=== PATIENT | female | born 1970 | race Caucasian/White ===

== ENCOUNTER 2018-07-14 10:59 | Outpatient (CLI) | payer BC | END 2018-07-14 11:00 | disposition home or self-care (01) | LOC: BICMAMMO 10:59 | PROVIDERS: ATTEND Obstetrics & Gynecology | DX: Z12.31 Encounter for screening mammogram for malignant neoplasm of breast (principal); R92.1 Mammographic calcification found on diagnostic imaging of breast; Z80.3 Family history of malignant neoplasm of breast | CPT/HCPCS: 77063; 77067 ==

== ENCOUNTER 2019-07-23 16:00 | Outpatient (CLI) | payer BC ==
--- NOTE | 2019-07-23 16:42 | MMO ---
Bilateral MAMMO Bilat Screen [facility]. CLINICAL HISTORY: Patient is 48 years old and is seen for screening. The patient has the following family history of breast cancer: paternal aunt. The patient has no personal history of cancer. VIEWS: The views performed were: bilateral craniocaudal with tomosynthesis and bilateral mediolateral oblique with tomosynthesis. FILMS COMPARED: The present examination has been compared to prior imaging studies performed at [facility] on 02/02/2015, 02/15/2016, 02/20/2017 and 07/14/2018. This study has been interpreted with the assistance of computer-aided detection. MAMMOGRAM FINDINGS: There are scattered fibroglandular densities. There are no suspicious masses, suspicious calcifications, or new areas of architectural distortion. IMPRESSION: THERE IS NO MAMMOGRAPHIC EVIDENCE OF MALIGNANCY. A ROUTINE FOLLOW-UP MAMMOGRAM IN 1 YEAR IS RECOMMENDED. THE RESULTS OF THIS EXAM WERE SENT TO THE PATIENT. ACR BI-RADS Category 1 - Negative MAMMOGRAPHY NOTE: 1. A negative mammogram report should not delay a biopsy if a dominant of clinically suspicious mass is present. 2. Approximately 10% to 15% of breast cancers are not detected by mammography. 3. Adenosis and dense breasts may obscure an underlying neoplasm. Reported by: CHITO LEWIS MD Electonically Signed: [id number]
== END 2019-07-23 16:01 | disposition home or self-care (01) ==
LOC: BICMAMMO 16:00
PROVIDERS: ATTEND Obstetrics & Gynecology
DX: Z12.31 Encounter for screening mammogram for malignant neoplasm of breast (principal); Z80.3 Family history of malignant neoplasm of breast
CPT/HCPCS: 77063; 77067

== ENCOUNTER 2020-07-27 07:55 | Outpatient (CLI) | payer BC ==
--- NOTE | 2020-07-27 09:00 | MMO ---
Bilateral MAMMO Bilat Screen [facility]. CLINICAL HISTORY: Patient is 49 years old and is seen for screening. The patient has the following family history of breast cancer: paternal aunt. The patient has no personal history of cancer. VIEWS: The views performed were: bilateral craniocaudal with tomosynthesis and bilateral mediolateral oblique with tomosynthesis. FILMS COMPARED: The present examination has been compared to prior imaging studies performed at [facility] on 02/15/2016, 02/20/2017, 07/14/2018 and 07/23/2019. This study has been interpreted with the assistance of computer-aided detection. MAMMOGRAM FINDINGS: There are scattered fibroglandular densities. There are no suspicious masses, calcifications or areas of architectural distortion. There are benign appearing calcifications in both breasts. There are no suspicious masses, suspicious calcifications, or new areas of architectural distortion. IMPRESSION: THERE IS NO MAMMOGRAPHIC EVIDENCE OF MALIGNANCY. A ROUTINE FOLLOW-UP MAMMOGRAM IN 1 YEAR IS RECOMMENDED. THE RESULTS OF THIS EXAM WERE SENT TO THE PATIENT. ACR BI-RADS Category 2 - Benign finding MAMMOGRAPHY NOTE: 1. A negative mammogram report should not delay a biopsy if a dominant of clinically suspicious mass is present. 2. Approximately 10% to 15% of breast cancers are not detected by mammography. 3. Adenosis and dense breasts may obscure an underlying neoplasm. Reported by: AIXA TRONCOSO MD Electonically Signed: [id number]
== END 2020-07-27 07:56 | disposition home or self-care (01) ==
LOC: BICMAMMO 07:55
PROVIDERS: ATTEND Obstetrics & Gynecology
DX: Z12.31 Encounter for screening mammogram for malignant neoplasm of breast (principal); Z80.3 Family history of malignant neoplasm of breast
CPT/HCPCS: 77063; 77067

== ENCOUNTER 2021-07-28 08:21 | Outpatient (CLI) | payer BC | END 2021-07-28 08:22 | disposition home or self-care (01) | LOC: BICMAMMO 08:21 | PROVIDERS: ATTEND Obstetrics & Gynecology | DX: Z12.31 Encounter for screening mammogram for malignant neoplasm of breast (principal); Z80.3 Family history of malignant neoplasm of breast | CPT/HCPCS: 77063; 77067 ==

== ENCOUNTER 2021-09-25 07:02 | Outpatient (CLI) | payer BC | END 2021-09-25 07:03 | disposition home or self-care (01) | LOC: BICULT 07:02 | PROVIDERS: ATTEND Family Medicine | DX: E66.3 Overweight (principal) | CPT/HCPCS: 93880 ==

== ENCOUNTER 2022-01-15 07:39 | Outpatient (CLI) | payer BC ==
[2022-01-15] MEDS ORDERED: Iopamidol-370 76% 500 ML 1 ML ONE (12:53)
== END 2022-01-15 07:40 | disposition home or self-care (01) ==
LOC: BICCT 07:39
PROVIDERS: ATTEND Family Medicine
DX: I65.23 Occlusion and stenosis of bilateral carotid arteries (principal)
CPT/HCPCS: 70498; Q9967

== ENCOUNTER 2022-07-30 11:42 | Outpatient (CLI) | payer BC | END 2022-07-30 11:43 | disposition home or self-care (01) | LOC: BICMAMMO 11:42 | PROVIDERS: ATTEND Student in an Organized Health Care Education/Training Program | DX: Z12.31 Encounter for screening mammogram for malignant neoplasm of breast (principal); Z80.3 Family history of malignant neoplasm of breast | CPT/HCPCS: 77063; 77067 ==

== ENCOUNTER 2023-09-04 09:20 | Outpatient (CLI) | payer BC ==
[~2023-09-04 09:20] MED LIST: Iopamidol 370 76% 100 ML VIAL ONE
== END 2023-09-04 09:21 | disposition home or self-care (01) ==
LOC: BICCT 09:20
PROVIDERS: ATTEND Physician Assistant Medical
DX: K52.9 Noninfective gastroenteritis and colitis, unspecified (principal); R10.84 Generalized abdominal pain; K76.89 Other specified diseases of liver
CPT/HCPCS: 74177

== ENCOUNTER 2025-08-03 11:55 | Outpatient (CLI) | payer BC | END 2025-08-03 11:56 | disposition home or self-care (01) | LOC: BICMAMMO 11:55 | PROVIDERS: ATTEND Physician Assistant Medical | DX: K21.9 Gastro-esophageal reflux disease without esophagitis (principal); K52.9 Noninfective gastroenteritis and colitis, unspecified; K86.81 Exocrine pancreatic insufficiency; R19.8 Other specified symptoms and signs involving the digestive system and abdomen; R10.10 Upper abdominal pain, unspecified; M85.80 Other specified disorders of bone density and structure, unspecified site; Z80.0 Family history of malignant neoplasm of digestive organs | CPT/HCPCS: 77080 ==